=== PATIENT | male | born 1960 | race Caucasian/White ===

== ENCOUNTER → 2017-03-27 | Outpatient (CLI) | payer OTHER ==
--- NOTE | ~2017-03-27 | MR32 ---
[facility] A Service of [facility] & [facility] RADIOLOGY TEXT RESULTS PATIENT: ALICE BURGESS LOCATION: [facility] : 64 UNIT #: [id number] AGE: [address]: Kevin Gloria MD SEX: M ORDER DR: [id number] [address] [address] [id number] O MR#: [id number] Acc #: [id number] NAME: ALICE BURGESS : 1960 SEX: M STUDY DATE/TIME: 03/27/2017 11:19 UNIT: [facility] ROOM: STUDY DESCRIPTION: MR Cervical Wo Contrast Attending Physician: Kevin Gloria M.D. Referring Physician: Kevin Gloria M.D. Ordering Physician: Kevin Gloria M.D. Primary Care Physician: Farrukh Reyna M.D. MRI CENTER REPORT This report is preliminary unless electronic signature is present. EXAM MRI of the cervical spine without contrast dated 03/27/2017 COMPARISON MRI cervical spine without contrast dated 02/24/2016. HISTORY Neck pain with increased stiffness, left-sided radiculopathy for 3 months. FINDINGS Multisequence multiplanar imaging of the cervical spine was obtained without contrast. Postoperative changes are noted at multiple cervical levels. There is a new hardware noted at the level of C3. Previously noted postoperative fusion from the level of C4 to C7 is again seen with hardware at C4 and C7. There is complete bony fusion from C4 to C7. No hardware is seen at C5-C6 level. Cervical cord demonstrates expected course and caliber. Increased T2 signal is noted within the cervical cord on either side of the midline at the level of C6 and to a lesser degree at C6-7. Stable. There is prominent disc osteophyte complex at the level of C3-4 causing canal stenosis and displacement of the cord posteriorly without obvious cord signal change yet. Pre and paravertebral soft tissues do not demonstrate any significant new lesions. C2-3: Disc osteophyte complex with mild bilateral facet hypertrophic changes. There is mild inferior bilateral neural foraminal narrowing. Borderline size canal. C3-4: Postoperative change and disc osteophyte complex are noted with mild bilateral facet change, worse on the left. Severe left and mild to moderate right neural foraminal narrowing is seen with borderline size to mild canal stenosis. C4-5: Postoperative change without canal stenosis or neural foraminal STS. [facility] A Service of [facility] & [facility] RADIOLOGY TEXT RESULTS PATIENT: ALICE BURGESS LOCATION: [facility] : 64 UNIT #: [id number] AGE: [address]: Kevin Gloria MD SEX: M ORDER DR: narrowing. C5-6: Postoperative change with right central spur extending towards the right subarticular region. Mild bilateral facet changes without significant neural foraminal narrowing. C6-7: Disc osteophyte complex with right central to subarticular prominent protrusion/spur with mild mass effect on the adjacent thecal sac. Mild bilateral facet changes are noted with [id number] left neural foraminal narrowing particularly in the superior aspect with relatively more patent inferior portion. C7-T1: Disc osteophyte complex with mild bilateral facet changes. Borderline size canal is seen with mild left neural foraminal narrowing. IMPRESSION 1. Degenerative changes are noted at multiple levels as described above. 2. Interval new anterior cervical fusion with hardware is seen at C3. Previously noted anterior cervical fusion from C4 to C7 are again noted with hardware at C4 and C7. 3. Increased T2 signal is noted within the cord at the level of C6 and C6-7 levels, most consistent with myelomalacic change. There is no cord enlargement. 4. Refer above Dictated by... Mark Philippe M.D. THIS IS AN ELECTRONICALLY VERIFIED REPORT Mark Philippe M.D. at 03/29/2017 4:16 PM CPR/rnr TD: 03/28/2017 15:19 JOB #: [id number] MRI CENTER REPORT Page 1 of 1
== END | disposition home or self-care (01) ==
LOC: SMRI 10:38
DX: Z51.81 Encounter for therapeutic drug level monitoring (principal); M79.2 Neuralgia and neuritis, unspecified; M47.812 Spondylosis without myelopathy or radiculopathy, cervical region; Z98.1 Arthrodesis status
CPT/HCPCS: 72141